=== PATIENT | male | born 2000 | race Caucasian/White ===

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

== ENCOUNTER 2023-06-04 09:00 | Day surgery (SDC) | payer BC ==
[~2023-06-04] VITALS: Ht 177.8 cm; Wt 101.4 kg
[2023-06-04] MEDS: NS 1,000 ML IV ONE (06:00)
[~2023-06-04 09:00] MED LIST: MOTR200T44 PO; ULTR0.0511 TOP
[2023-06-04] MEDS ORDERED: propofoL 200 MG/20 ML VIAL As Ordered ONE (10:30)
[2023-06-04 11:24] VITALS: TEMP 97.6
[2023-06-04 11:39] VITALS: BP 145/60; O2SAT 97
== END 2023-06-04 11:47 | disposition home or self-care (01) ==
LOC: M OPP 09:00
PROVIDERS: ATTEND Internal Medicine Gastroenterology
DX: K21.00 Gastro-esophageal reflux disease with esophagitis, without bleeding (principal); K52.9 Noninfective gastroenteritis and colitis, unspecified; K29.50 Unspecified chronic gastritis without bleeding; R11.2 Nausea with vomiting, unspecified; R14.0 Abdominal distension (gaseous)